=== PATIENT | male | born 1985 | race Caucasian/White ===

== ENCOUNTER 2019-10-11 19:52 | Observation (INO) ==
[2019-10-11 20:26] LABS: Bacteria,Urine Few per hpf (None-Few); Bilirubin,Urine Negative (Negative); Blood,Urine Negative (Negative); Clarity,Urine Turbid (Clear); Color,Urine Yellow (Yellow); Glucose,Urine (UA) Normal (Normal); Ketones,Urine Negative (Negative); Leukocyte Esterase,Urine Negative (Negative); Mucus,Urine Few per lpf (None-Few); Nitrite,Urine Negative (Negative); PH,Urine 6.5 pH Units (5.0-8.0); Protein,Urine 30 mg/dL (Neg-Trace); Specific Gravity,Urine > 1.030 (1.010-1.025); Squamous Epithelial Cell,Urine Few per hpf (None-Few); WBC,Urine 0-3 per hpf (0-3)
[2019-10-11 20:41] LABS: Amphetamine Screen,Urine Positive ng/mL (Cutoff=1000); Barbiturate Screen,Urine Negative ng/mL (Cutoff=200); Benzodiazepines Screen,Urine Negative ng/mL (Cutoff=200); Cannabinoid Screen,Urine Negative ng/mL (Cutoff = 50); Cocaine Screen,Urine Negative ng/mL (Cutoff= 300); Opiate Screen,Urine Negative ng/mL (Cutoff=300); Phencyclidine Screen,Urine Negative ng/mL (Cutoff=25)
[2019-10-11 20:45] LABS: Basophils # 0.1 K/mcL (0.0-0.2); Basophils % 0.4 %; Eosinophils # 0.4 K/mcL (0.0-0.6); Hematocrit 41.7 % (37.5-50.1); Hemoglobin 13.8 g/dL (12.9-16.9); Immature Granulocytes % 0.4 % (0-4); Lymphocytes # 4.3 K/mcL (0.6-4.6); Mean Corpuscular HGB Conc 33.1 g/dL (31.6-35.5); Mean Corpuscular Hemoglobin 29.7 pg (28.0-33.3); Mean Corpuscular Volume 89.7 fL (83.0-100.0); Mean Platelet Volume 10.1 fL (9.4-12.4); Monocytes % 7.8 %; Neutrophils # 6.9 K/mcL (1.6-8.9); Platelet Count 258 K/mcL (140-400); Red Blood Count 4.65 M/mcL (4.19-5.50); Red Cell Distribution Width 12.9 % (11.5-14.5); Segmented Neutrophils % 54.4 %; White Blood Count 12.7 K/mcL (4.3-11.1)
[2019-10-11 20:52] LABS: Estimated Average Glucose 131 mg/dl
[2019-10-11 21:06] LABS: Acetaminophen < 10 mcg/mL (10-20); BUN/Creatinine Ratio 22 (6-26); Blood Urea Nitrogen 18 mg/dL (6-20); Calcium 9.7 mg/dL (8.6-10.3); Carbon Dioxide 24 mEq/L (23-29); Chloride 106 mEq/L (98-107); Chol/HDL Ratio 3.5 (0-4.9); Cholesterol 153 mg/dL (< 200); Ethanol < 10 mg/dL (Less than 10); Glucose 120 mg/dL (70-105); HDL Cholesterol 44 mg/dL (40-59); LDL Cholesterol,Calculated 90 mg/dL (< 100); Osmolality,Calculated 289 (280-300); Potassium 3.7 mEq/L (3.5-5.1); Salicylate < 2.5 mg/dL (15.0-30.0); Sodium 138 mEq/L (136-145); Triglycerides 93 mg/dL (< 150); eGFR For African Americans > 60 (> 60); eGFR For Non-African Americans > 60 (> 60)
[2019-10-11 21:10] LABS: Reactive Lymphocytes Present (Not Present)
[2019-10-11] MEDS ORDERED: Haloperidol Lactate 5 MG/ML VIAL IM PRN (22:27)
[2019-10-11] MEDS ORDERED: haloperidoL 5 MG TABLET PO PRN (22:27)
[2019-10-11] MEDS ORDERED: Acetaminophen 325 MG TABLET PO PRN (22:27)
[2019-10-11] MEDS ORDERED: Ibuprofen 400 MG TABLET PO PRN (22:27)
[2019-10-11] MEDS ORDERED: Mag Hydrox/Al Hydrox/Simeth 30 ML UDC PO PRN (22:27)
[2019-10-11] MEDS ORDERED: Nicotine 21 MG PATCH.TD24 TD SCH (22:45)
[2019-10-11] MEDS: traZODone 50 MG TABLET PO PRN (23:37)
[2019-10-11] MEDS ORDERED: *HR* LORazepam 1 MG TABLET PO PRN (23:55)
[2019-10-11] MEDS ORDERED: MOM Conc 10 ML UD.LIQ PO PRN (23:55)
[2019-10-11] MEDS ORDERED: *HR* LORazepam 2 MG/ML VIAL IM PRN (23:55)
[2019-10-12] MEDS ORDERED: cloNIDine HCL 0.1 MG TABLET PO PRN (10:49)
[2019-10-12] MEDS: Nicotine 2 MG GUM BC PRN ×3 (11:41→20:05)
[2019-10-12] MEDS: BuPROPion XL (24 HR) 150 MG TABLET PO SCH (11:41)
[2019-10-12] MEDS: hydrOXYzine pamoate 25 MG CAPSULE PO PRN ×2 (13:45→21:09)
[2019-10-12] MEDS ORDERED: Topiramate 25 MG CAP.SPRINK PO SCH (21:00)
[2019-10-12] MEDS ORDERED: RisperiDONE-M 1 MG TAB.RAPDIS PO SCH (21:00)
[2019-10-12] MEDS: traZODone 50 MG TABLET PO PRN (21:09)
[2019-10-13] MEDS: BuPROPion XL (24 HR) 150 MG TABLET PO SCH (09:01)
[2019-10-13] MEDS: Nicotine 2 MG GUM BC PRN (09:03)
[2019-10-13 10:10] VITALS: BP 112/75
== END 2019-10-13 12:20 | disposition home or self-care (01) ==
LOC: EMEROOARM 19:52 → 1ANU 19:52
PROVIDERS: ADMIT Psychiatry & Neurology Psychiatry; ATTEND Psychiatry & Neurology Psychiatry